=== PATIENT | male | born 1995 | race Caucasian/White ===

== ENCOUNTER 2021-12-23 23:53 | Emergency (ER) | payer OTHER ==
[2021-12-24 00:01] VITALS: BMI 22.6
[2021-12-24] MEDS ORDERED: ONDANSETRON 4 MG/2 ML VIAL IVPUSH ONE (00:06)
[2021-12-24] MEDS ORDERED: FAMOTIDINE 20 MG/50 ML IVPB 20 MG/50 ML MG IVPB ONE ×2 (00:06→00:46)
[2021-12-24] MEDS ORDERED: ACETAMINOPHEN 1000 MG/100 ML BAG IVPB ONE (00:06)
[2021-12-24] MEDS ORDERED: SODIUM CHLORIDE 0.9% 500 ML INFUS.BAG IV ONE (00:06)
[2021-12-24] MEDS ORDERED: ONDANSETRON 4 MG/2 ML VIAL ONE (00:09)
[2021-12-24] MEDS ORDERED: ACETAMINOPHEN INJECTION 100 ML IVPB ONE (00:46)
[2021-12-24 00:49] LABS: BASO % 0.3 % (0-2.0); EOS % 0.4 % (0-4.5); HEMATOCRIT 51.1 % (35.4-49); LYMPH % 25.2 % (8-40); MCH 29.3 pg (25.7-33.7); MCHC 33.2 g/dl (32.0-35.9); MEAN CELL VOLUME 88.3 fl (80-96); MEAN PLT VOLUME 9.5 fl (7.5-11.1); NEUT % 72.1 % (42.8-82.8); PLATELET COUNT 229 10^3/uL (134-434); RBC 5.79 M/mm3 (4.00-5.60); WHITE BLOOD COUNT 7.2 K/mm3 (4.0-10.0)
[2021-12-24 00:59] LABS: CHLORIDE 105 mmol/L (98-107); SODIUM 140 mmol/L (136-145)
[2021-12-24 01:01] LABS: ALBUMIN 5.2 g/dl (3.4-5.0); ANION GAP 10 MMOL/L (8-16); CALCIUM 10.1 mg/dL (8.5-10.1); CO2 24 mmol/L (21-32); GLUCOSE,RANDOM 103 mg/dL (74-106)
[2021-12-24 01:02] LABS: BLOOD UREA NITROGEN 19.2 mg/dL (7-18)
[2021-12-24 01:04] LABS: CREATININE 1.4 mg/dL (0.55-1.3)
[2021-12-24 01:05] LABS: SGOT/AST 39 U/L (15-37); SGPT/ALT 25 U/L (13-61)
[2021-12-24 01:06] LABS: BILIRUBIN,TOTAL 0.6 mg/dL (0.2-1); TOT PROT 9.1 g/dl (6.4-8.2)
[2021-12-24 01:07] LABS: ALK PHOS 115 U/L (45-117)
[2021-12-24] MEDS ORDERED: SODIUM CHLORIDE 0.9% 1000 ML INFUS.BAG IV ONE (01:46)
[2021-12-24] MEDS ORDERED: HALOPERIDOL LACTATE 5 MG/ML IM ONE (01:54)
[2021-12-24] MEDS ORDERED: HALOPERIDOL LACTATE 5 MG/ML ONE (03:02)
[2021-12-24 06:14] VITALS: BP 122/82; PULSE 86
== END 2021-12-24 06:16 | disposition home or self-care (01) ==
LOC: JER 23:53
PROC: 3E033GC Introduction of Other Therapeutic Substance into Peripheral Vein, Percutaneous Approach (ICD-10-PCS; principal; 2021-12-23)
PROC: 3E023GC Introduction of Other Therapeutic Substance into Muscle, Percutaneous Approach (ICD-10-PCS; principal; 2021-12-23)
DX: R11.2 Nausea with vomiting, unspecified (principal)
CPT/HCPCS: 36415; 71045-TC-FY; 74176-TC; 80053; 80307; 83690; 85025; 93005; 93010; 99285-25

== ENCOUNTER 2025-03-06 15:09 | Emergency (ER) | payer OTHER ==
[2025-03-06 15:32] VITALS: BP 122/73; PULSE 86; RESP 18; TEMP 98.9; BMI 27.1
[2025-03-06] MEDS: SODIUM CHLORIDE 0.9% 500 ML INFUS.BAG IV ONE (16:20)
[2025-03-06 16:43] LABS: ABSOLUTE IMMATURE GRANULOCYTES 0.04 x10^3/uL (0.0-0.031); BASOPHILS # 0.09 x10^3/uL (0.01-0.08); EOSINOPHIL % 3.8 % (0.8-7.0); EOSINOPHILS # 0.29 x10^3/uL (0.04-0.54); HEMATOCRIT 44.8 % (40.1-51.0); HEMOGLOBIN 14.3 g/dL (13.7-17.5); MCHC 31.9 g/dl (32.3-36.5); MEAN PLT VOLUME 11.2 fl (9.4-12.4); MONOCYTE % 5.3 % (5.3-12.2); PLATELET COUNT 210 x10^3/uL (163-337); RDW 11.9 % (12.0-15.6)
[2025-03-06 17:04] LABS: POTASSIUM 3.8 mmol/L (3.5-5.1)
[2025-03-06 17:06] LABS: CALCIUM 9.1 mg/dL (8.5-10.1)
[2025-03-06 17:07] LABS: ALBUMIN 3.9 g/dl (3.4-5.0); BLOOD UREA NITROGEN 14.9 mg/dL (7-18)
[2025-03-06 17:10] LABS: CREATININE 0.9 mg/dL (0.55-1.3)
[2025-03-06 17:11] LABS: BILIRUBIN,TOTAL 0.3 mg/dL (0.2-1); TOT PROT 6.8 g/dl (6.4-8.2)
[2025-03-06] MEDS ORDERED: MECLIZINE HCL 25 MG TABLET (FP) ONE (17:39)
[2025-03-06] MEDS ORDERED: ACETAMINOPHEN INJECTION 100 ML ONE (17:39)
[2025-03-06] MEDS: MECLIZINE HCL 25 MG TABLET (FP) PO ONE (17:46)
[2025-03-06] MEDS: ACETAMINOPHEN 1000 MG/100 ML BAG IVPB ONE (17:46)
[2025-03-06 18:02] LABS: HCV DIAGNOSTIC IN-HOUSE W/RFLX NON-REACTIVE (NONREACTIVE); HIV INTERPRETATION NEGATIVE (NEGATIVE)
== END 2025-03-06 18:58 | disposition home or self-care (01) ==
LOC: JER 15:09
PROC: 3E033NZ Introduction of Analgesics, Hypnotics, Sedatives into Peripheral Vein, Percutaneous Approach (ICD-10-PCS; principal; 2025-03-06)
DX: R42 Dizziness and giddiness (principal); R00.2 Palpitations; R61 Generalized hyperhidrosis; R25.1 Tremor, unspecified
CPT/HCPCS: 0241U-QW; 36415; 70450-TC; 80053; 82962; 83036; 84439; 84443; 84484; 85025; 86803; 87389; 93005; 93010; 99285-25; J0131